=== PATIENT | female | born 1950 | race Two or more races ===

== ENCOUNTER → 2018-08-17 | Outpatient (CLI) | payer OTHER ==
[~2018-08-17] MED LIST: DIOVAN HCT 320/1 TAB PO; SYNTHROID75 MCG; ZYRTEC10 MG PO
== END | disposition home or self-care (01) ==
LOC: RAD 501 09:29
DX: M15.0 Primary generalized (osteo)arthritis (principal)

== ENCOUNTER 2018-10-13 08:48 | Emergency (ER) | payer OTHER ==
[~2018-10-13] VITALS: Ht 157.5 cm; Wt 78.9 kg
== END 2018-10-13 11:42 | disposition home or self-care (01) ==
LOC: ER 08:48
DX: S80.01XA Contusion of right knee, initial encounter (principal); W18.09XA Striking against other object with subsequent fall, initial encounter; Y93.89 Activity, other specified; Y92.018 Other place in single-family (private) house as the place of occurrence of the external cause; Y99.8 Other external cause status

== ENCOUNTER 2018-10-27 09:00 | Outpatient (CLI) | payer OTHER | END 2018-10-27 09:19 | disposition home or self-care (01) | LOC: MRI 09:00 | DX: M25.561 Pain in right knee (principal) | CPT/HCPCS: 73721 ==

== ENCOUNTER 2019-06-03 19:19 | Emergency (ER) | payer OTHER ==
[~2019-06-03] VITALS: Ht 157.5 cm; Wt 78.9 kg
[2019-06-03] MEDS ORDERED: PANADOL EXTRA500 MG (19:40)
[2019-06-03] MEDS ORDERED: OMEPRAZOLE (19:40)
== END 2019-06-03 21:57 | disposition home or self-care (01) ==
LOC: ER 19:19
DX: R07.0 Pain in throat (principal); T17.228A Food in pharynx causing other injury, initial encounter; X58.XXXA Exposure to other specified factors, initial encounter; Y93.89 Activity, other specified; Y92.89 Other specified places as the place of occurrence of the external cause; Y99.8 Other external cause status